=== PATIENT | male | born 1965 | race Caucasian/White ===

== ENCOUNTER 2016-10-14 11:40 | Emergency (ER) | payer MEDICAID ==
[2016-10-14 11:49] VITALS: TEMP 97.8
[2016-10-14 13:12] VITALS: BP 150/75; PULSE 62; RESP 18; O2SAT 97
[2016-10-14 13:17] LABS: BASO # 0.1 K/uL (0.0-0.2); BASO % 0.9 % (0.0-2.0); EOS # 0.2 K/uL (0.0-0.7); EOS % 2.9 % (0.0-4.0); HEMATOCRIT 37.9 % (35.0-51.0); LYMPH # 1.8 K/uL (1.0-4.3); LYMPH % 25.1 % (20.0-40.0); MEAN CELL VOLUME 83.9 fL (80.0-94.0); MEAN CORPUSCULAR HEMOGLOBIN 26.6 pg (27.0-31.0); MEAN CORPUSCULAR HGB CONC 31.7 g/dL (33.0-37.0); MEAN PLATELET VOLUME 9.3 fL (7.2-11.7); MONO # 0.5 K/uL (0.0-0.8); MONO % 7.5 % (0.0-10.0); RED CELL DISTRIBUTION WIDTH 14.1 % (11.5-14.5)
[2016-10-14 13:21] LABS: CHLORIDE 100 mmol/L (98-107)
[2016-10-14 13:22] LABS: POTASSIUM 3.7 mmol/L (3.6-5.2); SODIUM 138 mmol/L (132-148)
[2016-10-14 13:24] LABS: ALB/GLOB RATIO 1.6 (1.0-2.1); ALKALINE PHOSPHATASE 107 U/L (38-126); ALT/SGPT 49 U/L (21-72); AST/SGOT 52 U/L (17-59); BILIRUBIN,TOTAL 0.5 mg/dL (0.2-1.3); BLOOD UREA NITROGEN 14 mg/dL (9-20); CARBON DIOXIDE 23 mmol/L (22-30); GFR AFRICAN-AMERICAN > 60
[2016-10-14 13:25] LABS: CALCIUM 8.6 mg/dl (8.6-10.4); GLUCOSE,RANDOM 133 mg/dL (75-110)
--- NOTE | 2016-10-14 13:33 | CT ---
PROCEDURE: CT HEAD WITHOUT CONTRAST. HISTORY: R/O Bleed COMPARISON: 03/01/2016. TECHNIQUE: Axial computed tomography images were obtained through the head/brain without intravenous contrast. Radiation dose: Total exam DLP = 958.98 mGy-cm. This CT exam was performed using one or more of the following dose reduction techniques: Automated exposure control, adjustment of the mA and/or kV according to patient size, and/or use of iterative reconstruction technique. FINDINGS: HEMORRHAGE: No intracranial hemorrhage. BRAIN: Whitlock-white matter differentiation is preserved. There is no mass, mass effect or abnormal extra-axial fluid collection. VENTRICLES: There is mild global parenchymal volume loss and proportionate enlargement of the ventricles and cortical sulci. 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 PARANASAL SINUSES: Predominantly clear on. MASTOID AIR CELLS: Predominantly clear. OTHER FINDINGS: None. IMPRESSION: No acute intracranial abnormality. Mild age advanced global parenchymal volume loss.
--- NOTE | 2016-10-14 13:58 | C.PDOC ---
History Of Present Illness Patient is a 50 y/o male, whose PMHx includes HTN, that presents to the ED for evaluation of an episode of throbbing headache associated with blurry vision that lasted for 2-3 minutes. Patient states his symptoms started while he was watching TV, but reports his symptoms have resolved. At the time, he check his blood pressure which was 210/110. Notes taking his BP medicine at 9:00 this morning. Otherwise, denies any numbness, weakness, neurological deficits, dizziness, lightheadedness, chest pain, shortness of breath, fever, facial droop , or any other associated symptoms at this time. Time Seen by Provider: 10/14/16 11:59 Chief Complaint (Nursing): High Blood Pressure History Per: Patient History/Exam Limitations: no limitations Onset/Duration Of Symptoms: Hrs Current Symptoms Are (Timing): Gone Associated Symptoms: Blurred Vision, Headache. denies: Chest Pain, Dyspnea, Dizziness, Focal Weakness Severity: None Pain Scale Rating Of: 0 Exacerbating Factor(s): Pos: None Recent travel outside of the [place]: No Additional History Per: Patient Past Medical History Reviewed: Historical Data, Nursing Documentation, Vital Signs Vital Signs: Last Vital Signs Temp 97.8 F 10/14/16 11:43 Pulse 62 10/14/16 12:57 Resp 18 10/14/16 12:57 BP 150/75 10/14/16 12:57 Pulse Ox 97 10/14/16 14:57 - Medical History PMH: Diabetes, HTN, Sleep Apnea (uses CPAP) Family History: States: Unknown Family Hx - Social History Hx Tobacco Use: No Hx Alcohol Use: No Hx Substance Use: No - Immunization History Hx Tetanus Toxoid Vaccination: No Hx Influenza Vaccination: No Hx Pneumococcal Vaccination: No Review Of Systems Except As Marked, All Systems Reviewed And Found Negative. Constitutional: Negative for: Fever, Chills Eyes: Positive for: Vision Change (double vision) Cardiovascular: Negative for: Chest Pain, Palpitations, Light Headedness Respiratory: Negative for: Shortness of Breath Gastrointestinal: Negative for: Nausea, Vomiting, Abdominal Pain Neurological: Positive for: Headache. Negative for: Weakness, Numbness, Dizziness Physical Exam - Physical Exam Appears: Non-toxic, No Acute Distress Skin: Normal Color, Warm, Dry Head: Atraumatic, Normacephalic Eye(s): bilateral: Normal Inspection, PERRL, EOMI Ear(s): Bilateral: Normal Nose: Normal Oral Mucosa: Moist Neck: Normal ROM, Supple Chest: Symmetrical, No Tenderness Cardiovascular: Rhythm Regular, No Murmur Respiratory: Normal Breath Sounds, No Rales, No Rhonchi, No Wheezing Gastrointestinal/Abdominal: Soft, No Tenderness Extremity: Normal ROM Neurological/Psych: Oriented x3, Normal Speech, Normal Cognition, Normal Cranial Nerves (2-12 grossly intact), Normal Sensation, Other (no focal deficits ) ED Course And Treatment - Laboratory Results Result Diagrams: 10/14/16 13:07 10/14/16 12:41 ECG: Interpreted By Me, Viewed By Me ECG Rhythm: Sinus Rhythm ECG Interpretation: No Acute Changes Rate From EC (bpm) O2 Sat by Pulse Oximetry: 97 (on RA) Pulse Ox Interpretation: Normal - CT Scan/US Head CT Other Rad Studies (CT/US): Read By Radiologist, Radiology Report Reviewed CT/US Interpretation: FINDINGS: HEMORRHAGE: No intracranial hemorrhage. BRAIN : Whitlock-white matter differentiation is preserved. There is no mass, mass effect or abnormal extra-axial fluid collection. VENTRICLES: There is mild global parenchymal volume loss and proportionate enlargement of the ventricles and cortical sulci. 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 PARANASAL SINUSES: Predominantly clear on. MASTOID AIR CELLS: Predominantly clear. OTHER FINDINGS: None. IMPRESSION: No acute intracranial abnormality. Mild age advanced global parenchymal volume loss. Progress Note: Labs, head CT, EKG ordered and reviewed. Patient was given Catapres 0.2mg PO in the ER. On re-eval, patient reports improvement of symptoms. No neurological deficits. Discussed concerns for uncontrolled HTN and strict follow up. Patient is being discharged home, with instructions to follow up with PMD in 1-2 days. Case discussed with Dr Douglass, agreed upon plan and discharge. Disposition - Disposition Disposition: HOME/ ROUTINE Disposition Time: 14:18 Condition: STABLE Additional Instructions: Vaya a hollis mdico o la clnica en 2-5 leal sin falta, para mas evaluacin. Volver a la messi de emergencia en cualquier momento si los sntomas persisten o empeoran. 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 - Scribe Statement The provider has reviewed the documentation as recorded by the Scribe Felix Gloria All medical record entries made by the Delmiibhector were at my direction and personally dictated by me. I have reviewed the chart and agree that the record accurately reflects my personal performance of the history, physical exam, medical decision making, and the department course for this patient. I have also personally directed, reviewed, and agree with the discharge instructions and disposition.
--- NOTE | 2016-10-16 07:56 | CARD ---
APPROVED REPORT EKG Measurement Heart [id number] <Conclusion> Normal sinus rhythm Normal ECG
== END 2016-10-14 14:38 | disposition home or self-care (01) ==
LOC: C.ER 11:40
DX: I10 Essential (primary) hypertension (principal); R51 Headache

== ENCOUNTER 2017-12-04 21:48 | Emergency (ER) | payer MEDICAID ==
[2017-12-04 22:02] VITALS: BP 164/95; PULSE 98; RESP 20; TEMP 98.2; O2SAT 98
--- NOTE | 2017-12-04 22:36 | C.PDOC ---
History Of Present Illness 51 year old male presents to the ER with a complaint of an itchy rash to the groin for the past 1.5 weeks. He has been using A&D ointment with no relief. Denies fever, dysuria, abdominal pain, back pain, or testicular pain. Time Seen by Provider: 12/04/17 22:06 Chief Complaint (Nursing): Abnormal Skin Integrity History Per: Patient History/Exam Limitations: no limitations Onset/Duration Of Symptoms: Days Current Symptoms Are (Timing): Still Present Quality Of Symptoms: Itching Recent travel outside of the [place]: No Past Medical History Reviewed: Historical Data, Nursing Documentation, Vital Signs Vital Signs: Last Vital Signs Temp 98.2 F 12/04/17 22:00 Pulse 98 H 12/04/17 22:00 Resp 20 12/04/17 22:00 BP 164/95 H 12/04/17 22:00 Pulse Ox 98 12/04/17 23:35 - Medical History PMH: Diabetes, HTN, Sleep Apnea (uses CPAP) Family History: States: Unknown Family Hx - Social History Hx Tobacco Use: No Hx Alcohol Use: No Hx Substance Use: No - Immunization History Hx Tetanus Toxoid Vaccination: No Hx Influenza Vaccination: No Hx Pneumococcal Vaccination: No Review Of Systems Constitutional: Negative for: Fever, Chills Genitourinary: Positive for: Rash. Negative for: Dysuria, Scrotal Pain, Penile Pain Physical Exam - Physical Exam Appears: Non-toxic, No Acute Distress Skin: Warm, Dry, Rash (Scaling erythematous well demarcated rash to bilateral inguinal area) Head: Atraumatic, Normacephalic Eye(s): bilateral: Normal Inspection, EOMI Nose: Normal Oral Mucosa: Moist Neck: Normal ROM, Supple Chest: Symmetrical Respiratory: No Accessory Muscle Use Gastrointestinal/Abdominal: Soft, No Tenderness Back: No CVA Tenderness Neurological/Psych: Oriented x3, Normal Speech ED Course And Treatment O2 Sat by Pulse Oximetry: 98 (Room air) Pulse Ox Interpretation: Normal Progress Note: Patient is resting comfortably in the ER in no acute distress, afebrile, vitals are stable, will discharge home with Rx, instructions to follow up with PMD, and return precautions given. Disposition - Disposition Disposition: HOME/ ROUTINE Disposition Time: 22:34 Condition: STABLE Additional Instructions: Your blood pressure was mildly elevated today. Follow up with your doctor in 2- 3 days to ensure rash resolution and repeat blood pressure check. Return to the ER if symptoms persist or worsen. 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 - Scribe Statement The provider has reviewed the documentation as recorded by the Scribe Sharan Mercado All medical record entries made by the Delmiibhector were at my direction and personally dictated by me. I have reviewed the chart and agree that the record accurately reflects my personal performance of the history, physical exam, medical decision making, and the department course for this patient. I have also personally directed, reviewed, and agree with the discharge instructions and disposition.
== END 2017-12-04 22:50 | disposition home or self-care (01) ==
LOC: C.ER 21:48
DX: B35.6 Tinea cruris (principal)

== ENCOUNTER 2018-08-08 13:11 | Outpatient (CLI) | payer MEDICAID | END 2018-08-08 13:12 | disposition home or self-care (01) | LOC: C.RADIC 13:11 | DX: M54.12 Radiculopathy, cervical region (principal); M54.17 Radiculopathy, lumbosacral region ==